=== PATIENT | female | born 1995 | race Caucasian/White ===

== ENCOUNTER 2016-05-20 16:20 | Emergency (ER) | payer OTHER ==
[~2016-05-20] VITALS: Ht 167.6 cm; Wt 71.8 kg
[~2016-05-20 16:20] MED LIST: LEXAPRO 10MG10 MG PO; LO LOESTRIN FE1 TAB PO; MINASTRIN PO; NORCO 325 MG-51 TAB PO; ULTRAM 50MG TAB50 MG PO; VYVANSE40 MG PO; [UNRECOGNIZED DRUG - OTHER]
[2016-05-20 16:21] VITALS: TEMP 98.1
[2016-05-20] MEDS ORDERED: VYVANSE30 MG PO (16:25)
[2016-05-20] MEDS ORDERED: TAMIFLU 75MG75 MG PO (16:26)
[2016-05-20 17:28] LABS: INFLUENZA B NEGATIVE
[2016-05-20] MEDS ORDERED: DOXYCYCLINE 10100 MG PO (18:00)
[2016-05-20] MEDS ORDERED: IPRATROPIUM BROM3 M1 IH (18:00)
[2016-05-20] MEDS ORDERED: PREDNISONE20 MG PO (18:00)
[2016-05-20 18:21] VITALS: BP 121/87; PULSE 118
== END 2016-05-20 18:23 | disposition home or self-care (01) ==
LOC: COL.ER 16:20
PROVIDERS: Emergency Medicine
DX: J20.9 Acute bronchitis, unspecified (principal); J45.909 Unspecified asthma, uncomplicated
CPT/HCPCS: J7512